=== PATIENT | female | born 1945 | race Caucasian/White ===

== ENCOUNTER → 2024-07-16 14:29 | Outpatient (REF) | payer MEDICARE, OTHER, SELFPAY | LOC: MRI 3T 14:29 | PROVIDERS: ATTENDING PHYSICIAN Family Medicine | DX: M54.41 Lumbago with sciatica, right side (principal); M54.16 Radiculopathy, lumbar region | CPT/HCPCS: 72148 ==

== ENCOUNTER → 2025-01-13 14:45 | Outpatient (REF) | payer MEDICARE, OTHER, SELFPAY | LOC: HWRAD 14:45 | PROVIDERS: ATTENDING PHYSICIAN Family Medicine; FAMILY PHYSICIAN Family Medicine | DX: S71.101A Unspecified open wound, right thigh, initial encounter (principal); R22.42 Localized swelling, mass and lump, left lower limb | CPT/HCPCS: 76882 ==

== ENCOUNTER 2025-03-24 14:01 | Outpatient (REF) | payer MEDICARE, OTHER, SELFPAY | END 2025-03-24 23:59 | disposition home or self-care (01) | LOC: WOUND 14:01 | PROVIDERS: ATTENDING PHYSICIAN Registered Nurse | DX: S71.101A Unspecified open wound, right thigh, initial encounter (principal); X58.XXXA Exposure to other specified factors, initial encounter | CPT/HCPCS: 99204 ==

== ENCOUNTER 2025-03-31 13:02 | Outpatient (REF) | payer MEDICARE, OTHER, SELFPAY | END 2025-03-31 23:59 | disposition home or self-care (01) | LOC: WOUND 13:02 | PROVIDERS: ATTENDING PHYSICIAN Registered Nurse | DX: S71.101A Unspecified open wound, right thigh, initial encounter (principal); X58.XXXA Exposure to other specified factors, initial encounter | CPT/HCPCS: 88305; 88311; 99214 ==

== ENCOUNTER 2025-04-08 08:39 | Outpatient (REF) | payer MEDICARE, OTHER, SELFPAY | END 2025-04-08 23:59 | disposition home or self-care (01) | LOC: WOUND 08:39 | PROVIDERS: ATTENDING PHYSICIAN Registered Nurse; FAMILY PHYSICIAN Family Medicine | DX: S71.101A Unspecified open wound, right thigh, initial encounter (principal); X58.XXXA Exposure to other specified factors, initial encounter | CPT/HCPCS: 99214 ==

== ENCOUNTER 2025-04-14 08:45 | Outpatient (REF) | payer MEDICARE, OTHER, SELFPAY | END 2025-04-14 23:59 | disposition home or self-care (01) | LOC: WOUND 08:45 | PROVIDERS: ATTENDING PHYSICIAN Registered Nurse | DX: S71.101A Unspecified open wound, right thigh, initial encounter (principal); X58.XXXA Exposure to other specified factors, initial encounter | CPT/HCPCS: 99214 ==